=== PATIENT | female | born 1960 | race Caucasian/White ===

== ENCOUNTER 2017-10-13 17:53 | Emergency (ER) | payer SELFPAY ==
[~2017-10-13] VITALS: Ht 149.9 cm; Wt 65.9 kg
[2017-10-13] MEDS ORDERED: IBUPROFEN 600 MG TABLET PO ONE (21:30)
[2017-10-13 21:53] VITALS: BP 168/91
== END 2017-10-13 22:57 | disposition home or self-care (01) ==
LOC: EMS 17:54
DX: S80.11XA Contusion of right lower leg, initial encounter (principal); S80.12XA Contusion of left lower leg, initial encounter; M25.532 Pain in left wrist; W22.8XXA Striking against or struck by other objects, initial encounter; Y93.89 Activity, other specified; Y92.89 Other specified places as the place of occurrence of the external cause; Y99.8 Other external cause status
CPT/HCPCS: 99284